=== PATIENT | female | born 2000 | race Hispanic/Latino ===

== ENCOUNTER 2023-03-29 13:12 | Emergency (ER) | payer OTHER ==
[~2023-03-29] VITALS: Ht 154.9 cm; Wt 59.7 kg
[2023-03-29 17:10] LABS: BASO % 0.4 % (0.0-1.0); EOS # 0.1 10^3/uL (0.0-0.5); EOS % 1.9 % (0.0-3.0); HEMATOCRIT 38.4 % (36.0-47.0); HEMOGLOBIN 13.4 g/dl (12.0-15.5); LYMPH # 2.2 10^3/uL (1.5-5.0); LYMPH % 31.4 % (24.0-44.0); MEAN CORPUSCULAR HEMOGLOBIN 32.4 pg (27.0-33.0); MEAN CORPUSCULAR HGB CONC 34.9 g/dl (32.0-36.5); MEAN CORPUSCULAR VOLUME 92.8 fl (80.0-96.0); MONO # 0.3 10^3/uL (0.0-0.8); MONO % 4.9 % (2.0-8.0); NEUTROPHILS # 4.3 10^3/uL (1.5-8.5); NEUTROPHILS % 61.3 % (36.0-66.0); PLATELET COUNT, AUTOMATED 293 10^3/uL (150-450); RED BLOOD COUNT 4.14 10^6/uL (4.00-5.40)
[2023-03-29 17:25] LABS: HCG, SERUM QUALITATIVE NEGATIVE (NEGATIVE)
[2023-03-29 17:28] LABS: BLOOD UREA NITROGEN 12 MG/DL (9-23); CALCIUM LEVEL 8.6 MG/DL (8.5-10.1); CARBON DIOXIDE LEVEL 27 MMOL/L (20-31); CHLORIDE LEVEL 107 MMOL/L (98-107); CK-MB VALUE MASS < 1.0 NG/ML (<3.6); CPK CREATINE PHOSPHOKINASE 95 U/L (34-145); CREATININE FOR GFR 0.73 MG/DL (0.55-1.30); GLOMERULAR FILTRATION RATE > 60.0 (>60); GLUCOSE, FASTING 112 MG/DL (60-100); MB/CK RELATIVE INDEX 1.05 (< OR =4); POTASSIUM SERUM 3.8 MMOL/L (3.5-5.1); SODIUM LEVEL 141 MMOL/L (136-145)
[2023-03-29 18:16] LABS: CK-MB VALUE MASS < 1.0 NG/ML (<3.6)
[2023-03-29 18:21] LABS: CPK CREATINE PHOSPHOKINASE 68 U/L (34-145); MB/CK RELATIVE INDEX 1.47 (< OR =4)
[2023-03-29 18:29] LABS: RSV AMPLIFICATION NEGATIVE (NEGATIVE)
[2023-03-29 18:53] VITALS: BP 114/57; TEMP 98; O2SAT 99
== END 2023-03-29 19:44 | disposition home or self-care (01) ==
LOC: M ED 13:12
DX: R07.9 Chest pain, unspecified (principal)

== ENCOUNTER 2024-04-19 13:55 | Emergency (ER) | payer OTHER ==
[~2024-04-19] VITALS: Ht 154.9 cm; Wt 57.8 kg
[2024-04-19] MEDS ORDERED: MIRT-10 (14:02)
[2024-04-19] MEDS ORDERED: TOPI25TA10 (14:02)
[2024-04-19] MEDS ORDERED: SUMA25TA3 (14:02)
[2024-04-19] MEDS ORDERED: ACET-683 PO (14:02)
[2024-04-19 17:58] VITALS: TEMP 98.7
[2024-04-19 20:44] VITALS: O2SAT 99
[2024-04-19 22:47] VITALS: BP 110/63
[2024-04-19] MEDS ORDERED: METH-1165 PO (22:47)
== END 2024-04-19 22:54 | disposition home or self-care (01) ==
LOC: M ED 13:55
DX: M54.50 Low back pain, unspecified (principal); R20.2 Paresthesia of skin; W19.XXXA Unspecified fall, initial encounter; Y92.9 Unspecified place or not applicable; Y93.9 Activity, unspecified; Y99.9 Unspecified external cause status